=== PATIENT | female | born 1965 | race Caucasian/White ===

== ENCOUNTER → 2017-02-14 | Outpatient (CLI) | payer OTHER ==
--- NOTE | 2017-02-14 16:33 | REPMRS ---
Patient History The patient states she had a clinical breast exam in 12/2016. No known family history of cancer. Benign stereotatic breast biopsy of the right breast, October 04, 2012. US Guidance Needle Placement of the left breast, October 04, 2012. Digital Woman Screen Mammo: February 14, 2017 - Exam #: [id number] Bilateral CC and MLO view(s) were taken. Technologist: Pari Raymond, Technologist Prior study comparison: July 08, 2015, digital woman screen mammo performed at [facility] to [facility]. June 11, 2014, left breast digital mammo diagnostic unilateral, performed at [facility]. June 11, 2014, left breast real time ultrasound, performed at [facility]. May 28, 2014, digital woman screen mammo performed at [facility]. FINDINGS: The breast tissue is heterogeneously dense. This may lower the sensitivity of mammography. There has been no change in the appearance of the mammogram from the prior studies. There is a moderate amount of residual fibroglandular tissue which is fairly symmetric. Stereotactic clip again noted in upper outer quadrant right breast. There is no interval development of dominant mass, architectural distortion, or clustered microcalcification typical of malignancy. Scattered lymph nodes are seen in the right axilla. No significant changes when compared with prior studies. ASSESSMENT: BI-RADS/ACR category 2 mammogram. Benign finding(s). Recommendation Routine screening mammogram in 1 year (for women over age 40). This mammogram was interpreted with the aid of an FDA-approved computer-aided dectection system. A. Negative x-ray reports should not delay biopsy if a dominant or clinically suspicious mass is present. B. Four to eight percent of cancers are not identified by mammography. C. Adenosis and dense breast may obscure an underlying neoplasm. Electronically Signed By: Tavarse Schwartz MD 02/14/17 [id number]
== END ==
LOC: M WHC 15:38
PROVIDERS: ATTEND Nurse Practitioner Family
DX: Z12.31 Encounter for screening mammogram for malignant neoplasm of breast (principal)

== ENCOUNTER → 2017-04-25 | Outpatient (REF) | payer OTHER | LOC: M SMT 17:20 | PROVIDERS: ATTEND Nurse Practitioner Women's Health | DX: Q64.4 Malformation of urachus (principal) ==

== ENCOUNTER → 2017-05-10 | Outpatient (CLI) | payer OTHER ==
[~2017-05-10] VITALS: Ht 149.9 cm; Wt 84.8 kg
[~2017-05-10] MED LIST: LIDOCAINE 2% INJ 100 MG/5 ML SDV (FOR ANES.) As Ordered ONE; NS 1,000 ML IV ONE; PROPOFOL 200 MG/20 ML VIAL As Ordered ONE
--- NOTE | 2017-05-10 12:14 | ROOR ---
Patient Name: Emely Vee Procedure Date: 05/10/2017 11:41 AM Date of : 1965 Age: 51 Room: [facility] Gender: Female Note Status: Finalized Procedure: Colonoscopy Indications: Abnormal CT of the GI tract Providers: Sam Perales MD Referring MD: VIVIANE WEBER NP Requesting Provider: Medicines: Monitored Anesthesia Care Complications: There was abnormal thickening or mass in the cecum by CT just above the ileocecal valve. No mass. thickening, inflammation found at the cecum. Procedure: Pre-Anesthesia Assessment: - Prior to the procedure, a History and Physical was performed, and patient medications and allergies were reviewed. The patient is competent. The risks and benefits of the procedure and the sedation options and risks were discussed with the patient. All questions were answered and informed consent was obtained. Patient identification and proposed procedure were verified by the physician, the nurse and the anesthesiologist in the procedure room. Mental Status Examination: alert and oriented. Airway Examination: normal oropharyngeal airway and neck mobility. Respiratory Examination: clear to auscultation. CV Examination: normal. Prophylactic Antibiotics: The patient does not require prophylactic antibiotics. Prior Anticoagulants: The patient has taken no previous anticoagulant or antiplatelet agents. ASA Grade Assessment: II - A patient with mild systemic disease. After reviewing the risks and benefits, the patient was deemed in satisfactory condition to undergo the procedure. The anesthesia plan was to use monitored anesthesia care (MAC). Immediately prior to administration of medications, the patient was re-assessed for adequacy to receive sedatives. The heart rate, respiratory rate, oxygen saturations, blood pressure, adequacy of pulmonary ventilation, and response to care were monitored throughout the procedure. The physical status of the patient was re-assessed after the procedure. The Colonoscope was introduced through the anus and advanced to the terminal ileum, with identification of the appendiceal orifice and IC valve. The colonoscopy was performed without difficulty. The patient tolerated the procedure well. The quality of the bowel preparation was good. Findings: The perianal and digital rectal examinations were normal. The entire examined colon appeared normal. Impression: - The entire examined colon is normal. - No specimens collected. Recommendation: - Discharge patient to home (ambulatory). Sam Perales MD Sam Perales MD 05/10/2017 12:13:45 PM This report has been signed electronically. Number of Addenda: 0 Note Initiated On: 05/10/2017 11:41 AM Estimated Blood Loss: Estimated blood loss: none.
[2017-05-10 12:41] VITALS: BP 143/87
== END | disposition home or self-care (01) ==
LOC: M OPP 11:04
PROVIDERS: ATTEND Surgery
DX: R93.3 Abnormal findings on diagnostic imaging of other parts of digestive tract (principal); R12 Heartburn; R06.83 Snoring; Q64.4 Malformation of urachus; N36.8 Other specified disorders of urethra; D37.4 Neoplasm of uncertain behavior of colon; Z80.8 Family history of malignant neoplasm of other organs or systems

== ENCOUNTER → 2017-06-08 | Day surgery (SDC) | payer OTHER ==
--- NOTE | 2017-05-25 20:43 | CR ---
DATE OF CONSULTATION: 05/25/2017 Preoperative consultation on Emely Vee for Dr. Cole for a bladder tumor resection. Dear Dr. Cole: Thank you for your referral for Ms. Emely Vee for preoperative evaluation prior to her bladder tumor resection. Ms. Vee as you know is a 51-year-old female, past medical history of obesity, osteoarthritis, dyspepsia, who reports that she has been in her usual state of health. The patient is active, walking two miles a day. Denies any chest pain, palpitations, syncope or presyncope. The patient reports sudden onset abdominal pain when she rolled over spring. She was able to feel a mass. This mass was evaluated initially with pelvic ultrasound times two which showed no pathology but a CT scan of the abdomen and pelvis 04/07/2017, showed what appeared to be a mass in the right colon and a cystic structure anterior pelvic wall most consistent with a urachal cyst. The patient was referred to urology, a cystoscopy was done which revealed a 2 cm mass in the bladder. The patient denies any urgency, frequency, dysuria. She is aware of the abdominal mass. It is sensitive only if pressure is specifically put over it. She otherwise denies any other pelvic symptoms, chest pain, palpitations, syncope or presyncope. Patient's colon mass seen on CT imaging was evaluated with colonoscopy which showed no pathology. Review of systems otherwise negative. PAST MEDICAL HISTORY: 1. Fibrocystic breast disease status post breast aspiration 10/01. 2. Cholecystectomy 1999. 3. G4, P2 spontaneous AB one, TAB one. 4. Osteoarthritis. 5. Varicose vein ablation. PATIENT'S MEDICATIONS: None. DRUG ALLERGIES: None. 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 Two grown sons and a daughter. Never smoked. Six beers a week. FAMILY HISTORY: Father hypertension, skin cancer. Mother suicide at age 45 with a history of depression, obesity, thyroid disease, COPD. Siblings alive and well. Grandparents had diabetes, cardiac disease, aneurysm, heart disease. PHYSICAL EXAMINATION: Obese female in no acute distress. VITAL SIGNS: Are: Weight 192 with a BMI of 38, oxygen saturation is 98%, blood pressure 104/68, pulse is 77. HEENT EXAM: Head is normocephalic. Neck is supple. Pupils equal, reactive to light. Extraocular movements are intact. Conjunctivae not injected. Sclerae anicteric. Vision grossly normal. Tympanic membranes normal. Tongue midline. Posterior pharynx without inflammation. NECK: Is supple. No thyromegaly, JVD, carotid bruits. RESPIRATORY: Clear to auscultation, resonant to percussion. BREAST EXAM: Deferred. CARDIOVASCULAR: 2-3 over 6 systolic murmur right upper sternal border. ABDOMEN: Soft, nontender. Obese. No hepatosplenomegaly, however midline cystic 1.5 cm soft mass is palpated, minimally tender. EXTREMITIES: No cyanosis, clubbing or edema. LABORATORY DATA: EKG done in my office 05/25/2017 shows normal sinus rhythm, rate of 65, axis of 38 degrees, essentially normal with no comparison available. Lab work 05/18/2017 shows normal CBC, urinalysis, PT/PTT, metabolic profile. Chest [facility] done at [facility] ([facility] 05/18/2017 is normal with no acute disease. IMPRESSION: Ms. Emely Vee, a 51-year-old female with no cardiovascular risk factors other than age, has no signs or symptoms indicative of cardiovascular ischemia and is felt to be at low risk for cardiovascular complications from the proposed surgical intervention which can be further minimized by the followin. Bladder tumor. Await pathology. Defer further evaluation and treatment to Dr. Cole. 2. Urachal cyst. Pursue further treatment after need for further evaluation and treatment for bladder tumor determined. 3. Abnormal CT showing a mass in the right colon. Normal colonoscopy showing no pathology. Discussed with radiologist as to need for further evaluation and treatment. Colonoscopy showed no pathology 05/10/2017. 4. Systolic murmur benign in nature. No radiation. No need for further evaluation and treatment. 5. Obesity. Diet, exercise. 6. Osteoarthritis (OA), degenerative joint disease (DJD), chronic, stable. Thank you very much for this consultation. Please call with questions or concerns.
[~2017-06-08] VITALS: Ht 149.9 cm; Wt 84.8 kg
[~2017-06-08] MED LIST changes: +ACETAMINOPHEN 650MG ER TAB (TYLENOL ARTHRITIS) PO SCH; +CIPR500T3 PO; +CIPROFLOXACIN 500 MG TAB PO SCH; +KETOROLAC 30 MG/ML VIAL (J1885) IV PRN; +LIDOCAINE 1% MDV 20ML VIAL SQ PRN; +LR 1,000 ML IV ONE; +LR 1,000 ML IV SCH; +MEPERIDINE INJ 25 MG/ML VIAL (J2175) IV PRN; +METOCLOPRAMIDE INJ 10MG/2ML VIAL (J2765) IV PRN; +MIDAZOLAM INJ 2 MG/2 ML VIAL (J2250) As Ordered ONE; -NS 1,000 ML IV ONE; +ONDANSETRON 4MG/2ML VIAL (J2405) As Ordered ONE; +ONDANSETRON 4MG/2ML VIAL (J2405) IV PRN; +TYLE650T35 PO; +dexameTHASONE 4 MG/ML 1ML VIAL (J1100) As Ordered ONE; +ePHEDrine SULFATE 25 MG/5 ML(5MG/ML) SYRINGE As Ordered ONE; +fentaNYL 100 MCG/2 ML INJECTION (J3010) IV PRN; +fentaNYL 250 MCG/5 ML INJECTION (J3010) As Ordered ONE
[2017-06-08 11:30] VITALS: BP 133/80
--- NOTE | 2017-06-09 20:52 | RO ---
DATE OF PROCEDURE: 06/08/2017 PREPROCEDURE DIAGNOSIS: Bladder tumor. POSTPROCEDURE DIAGNOSIS: Bladder tumor 2 cm in diameter. FINDINGS: 2 cm in diameter bladder tumor, papillary in the middle area of the trigone. PROCEDURE: Cystoscopy, plus exam under anesthesia, plus transurethral resection of bladder tumor, plus urethral dilatation. SURGEON: Andreas Cole MD RADIOLOGICAL METALLURGIST: None. ANESTHESIA: LMA. COMPLICATIONS: None. ESTIMATED BLOOD LOSS: N/A. HISTORY OF THE PRESENT ILLNESS: A 51-year-old female patient has microscopic hematuria. We did a flexible cystoscopy in the clinic, and it showed a papillary tumor about 2 cm in the trigone. For this reason, she has consented for a cystoscopy plus transurethral resection of bladder tumor. DESCRIPTION OF PROCEDURE: In a patient under general anesthesia in supine modified low lithotomy position, after prepping and draping the area of concern, we started by doing a bimanual examination under anesthesia. There were no bladder masses felt. The pedicles of the bladder were intact. There were no lesions in the vagina or urethra. We then proceeded to introduce the cystoscope. Cystoscope could not pass very easily. For this reason, we grabbed the Hegar dilators and dilated the urethral meatus and the urethra up to a 30 Charriere. We then proceeded to pass the cystoscope and did a formal cystoscopy with 30-degree lens and 70-degree lens. There was only one tumor about 2 cm in the trigone in the midline. We then exchanged the cystoscope for a resectoscope. Under normal saline, we did a bipolar transurethral resection of the bladder tumor. We collected the specimen with [facility] evacuator and sent it for permanent pathology analysis. We then fulgurated the base of resection and then took out the resectoscope and placed a 20-[place] Whiteside catheter, inflated the balloon to 20 mL and placed it to gravity. PLAN: The patient will go home, take antibiotics, pain medication, followup at [facility] [place] on Monday to actively remove and to give her a voiding trial. There were no complications during surgery.
== END | disposition home or self-care (01) ==
LOC: M SDC 07:06
PROVIDERS: ATTEND Urology
DX: R31.29 Other microscopic hematuria (principal); K21.9 Gastro-esophageal reflux disease without esophagitis
CPT/HCPCS: 36415; 52234; 86850; 86900; 86901; 88307; J0690; J1100; J1885; J2250; J2405; J3010

== ENCOUNTER → 2017-10-18 | Outpatient (CLI) | payer OTHER ==
[~2017-10-18] MED LIST changes: -ACETAMINOPHEN 650MG ER TAB (TYLENOL ARTHRITIS) PO SCH; -CIPROFLOXACIN 500 MG TAB PO SCH; +ISOVUE-370 76% 100ML VIAL (Q9967) As Ordered ONE; -KETOROLAC 30 MG/ML VIAL (J1885) IV PRN; -LIDOCAINE 1% MDV 20ML VIAL SQ PRN; -LIDOCAINE 2% INJ 100 MG/5 ML SDV (FOR ANES.) As Ordered ONE; -LR 1,000 ML IV ONE; -LR 1,000 ML IV SCH; -MEPERIDINE INJ 25 MG/ML VIAL (J2175) IV PRN; -METOCLOPRAMIDE INJ 10MG/2ML VIAL (J2765) IV PRN; -MIDAZOLAM INJ 2 MG/2 ML VIAL (J2250) As Ordered ONE; -ONDANSETRON 4MG/2ML VIAL (J2405) As Ordered ONE; -ONDANSETRON 4MG/2ML VIAL (J2405) IV PRN; -PROPOFOL 200 MG/20 ML VIAL As Ordered ONE; -dexameTHASONE 4 MG/ML 1ML VIAL (J1100) As Ordered ONE; -ePHEDrine SULFATE 25 MG/5 ML(5MG/ML) SYRINGE As Ordered ONE; -fentaNYL 100 MCG/2 ML INJECTION (J3010) IV PRN; -fentaNYL 250 MCG/5 ML INJECTION (J3010) As Ordered ONE
--- NOTE | 2017-10-18 12:53 | REP ---
Clinical: Cystitis cystica. Technique: Axial precontrast, contrast enhanced, and delayed images of the abdomen and pelvis using 100 ml Isovue 370 intravenous contrast material coronal and sagittal re-formations as well as volume rendered 3-D CT urogram. Findings: Evaluation of the urinary tract system in all phases of enhancement demonstrates an 8 cm simple right renal cyst along with bilateral extrarenal pelvises. The kidneys demonstrate symmetric enhancement without nephrolithiasis, perinephric stranding or mass lesion. The collecting system is without hydroureteronephrosis and the bladder is grossly unremarkable. No bladder wall thickening, mass lesion or bladder calculus is appreciated. No acute or chronic infiltrative changes are appreciated. 3.7 cm hepatic cyst identified in the medial segment left lobe. The liver is otherwise unremarkable. Evidence of prior cholecystectomy noted. Spleen, pancreas, and bilateral adrenal glands are normal. The enteric system is without obstruction or acute inflammatory process. Colonic and sigmoid diverticulosis noted without acute diverticulitis. Small fat containing periumbilical hernia as well as fat and fluid containing midline ventral pelvic hernia identified. Pelvis demonstrates age appropriate uterus / adnexa with uterine myomatous changes noted. Abdominal aorta and vasculature appears normal. Surrounding musculoskeletal structures are intact and demonstrate degenerative changes. No ascites. No adenopathy. No free air. Lung bases are clear. Impression: 1. Urinary tract system demonstrates 8 cm simple right renal cyst along with benign bilateral extrarenal pelvises. No further urinary tract abnormality identified. 2. 3.7 cm hepatic cyst. 3. Diverticulosis without acute diverticulitis. 4. Myomatous changes to the uterus. 5. No acute abdominopelvic pathology appreciated. Signed by Bora Alvarado MD 10/18/2017 12:44 P
== END ==
LOC: M RAD 11:31
PROVIDERS: ATTEND Urology
DX: N30.80 Other cystitis without hematuria (principal); Q64.4 Malformation of urachus

== ENCOUNTER → 2018-02-20 | Outpatient (CLI) | payer OTHER | LOC: M WHC 06:46 | DX: Z12.31 Encounter for screening mammogram for malignant neoplasm of breast (principal); Z80.3 Family history of malignant neoplasm of breast | CPT/HCPCS: 77067 ==

== ENCOUNTER → 2018-05-07 | Outpatient (REF) | payer OTHER | LOC: M SFHCLERA 17:26 | DX: J02.9 Acute pharyngitis, unspecified (principal) ==

== ENCOUNTER → 2018-07-02 | Outpatient (REF) | payer OTHER | LOC: M SMT 17:14 | DX: N30.80 Other cystitis without hematuria (principal) ==

== ENCOUNTER → 2019-01-08 | Outpatient (CLI) | payer OTHER ==
[~2019-01-08] MED LIST changes: -ISOVUE-370 76% 100ML VIAL (Q9967) As Ordered ONE
--- NOTE | 2019-01-11 09:53 | SLEEPHOME ---
DATE OF PROCEDURE: 01/08/2019 ORDERED BY: Diane Rojas Diagnostic home sleep testing was due to concern for the obstructive sleep apnea syndrome in this patient with a story of excessive somnolence and nonrestorative sleep. For testing, a nocturnal T3 respiratory monitoring device was used. Continuous record was made of pulse, oxygen saturation, airflow, chest and abdominal strain and body position. 10 hours and 59 minutes of data were reviewed. Of these, 4 hours and 53 minutes were marked as time in bed. During the interval marked time in bed, there were 54 respiratory events identified of 10 seconds in duration or greater for a respiratory event index of 11. The events were primarily obstructive. Baseline pulse rate was 67 beats per minute. Pulse rate ranged 54-113. Baseline saturation was 93%. Saturations fell as low as 78%. Testing was performed in both the supine and nonsupine positions. IMPRESSION: Abnormal home sleep testing with repetitive respiratory events and oxygen desaturations to 78% with a respiratory event index of 11 is consistent with the obstructive sleep apnea syndrome. RECOMMENDATION: The patient should be encouraged to undergo formal sleep evaluation and in-laboratory pressure titration.
== END ==
LOC: M SLEEP HO 12:36
PROVIDERS: ATTEND Nurse Practitioner Family
DX: R40.0 Somnolence (principal)

== ENCOUNTER → 2019-03-28 | Outpatient (CLI) | payer OTHER ==
--- NOTE | 2019-03-28 15:18 | REP ---
BILATERAL MAMMOGRAM WITH 3D TOMOSYNTHESIS: FAMILY HISTORY: Breast cancer in sister at age 51. COMPARISON: 02/20/2018 as well as other prior exams. MLO and CC views of both breasts performed with 3D tomosynthesis. There is moderately dense fibroglandular tissue in a heterogeneous pattern. There is a new oval nodule in the upper outer quadrant of the left breast posteriorly which measures about 1.5 cm in maximum diameter. I see no other evidence of mass or clustered microcalcifications. A metallic clip is again seen in the upper outer quadrant of the right breast. IMPRESSION: ACR 0 incomplete. New oval nodule upper outer quadrant left breast posteriorly. Recommend spot compression views and ultrasound to further evaluate. BIRADS 0: BI-RADS/ACR category 0 mammogram, Incomplete: Need additional imaging evaluation and/or prior mammograms for comparison. This mammogram was interpreted with the aid of an FDA-approved computer-aided detection system. The patient states she/he has not had a clinical breast exam in over a year. The patient letter being requested is M0. Eyal Fournier lifetime risk of breast cancer is 16.6%.
== END ==
LOC: M WHC 12:36
PROVIDERS: ATTEND Internal Medicine
DX: Z12.31 Encounter for screening mammogram for malignant neoplasm of breast (principal); Z85.3 Personal history of malignant neoplasm of breast; N63.21 Unspecified lump in the left breast, upper outer quadrant

== ENCOUNTER → 2019-04-17 | Outpatient (CLI) | payer OTHER ==
--- NOTE | 2019-04-17 14:12 | REP ---
DIAGNOSTIC MAMMOGRAM LEFT BREAST WITH LEFT BREAST ULTRASOUND: Multiple spot compression views of the outer left breast performed and correlated with a recent mammogram of 03/28/2019. These confirm the presence of an oval, predominantly well circumscribed nodule posteriorly in the lateral aspect of the left breast about 10 cm from the nipple. Real-time sonographic evaluation of the posterolateral left breast demonstrates an oval cyst approximately 1.0 x 0.7 x 1.4 cm corresponding to the mammographic abnormality. This is benign. IMPRESSION: BIRADS 2: BI-RADS/ACR category 2 mammogram. Benign Findings. ACR 2 benign. Oval nodule confirmed posteriorly in the lateral aspect of the left breast. This corresponds to a simple benign cyst by ultrasound. Recommend routine followup bilateral mammogram in 1 year. Patient letter M1. Electronically Signed by Jung Smith MD 04/17/2019 02:17 P
== END ==
LOC: M RAD 12:46
PROVIDERS: ATTEND Internal Medicine
DX: N60.02 Solitary cyst of left breast (principal)

== ENCOUNTER → 2019-04-19 | Outpatient (CLI) | payer OTHER ==
--- NOTE | 2019-04-23 20:18 | SLEEPCENT ---
DATE OF PROCEDURE: 04/19/2019 ORDERED BY: JUDD Connolly Nocturnal polysomnography was performed for the titration of pressure therapy in this patient with a clinical diagnosis of obstructive sleep apnea syndrome confirmed by home testing revealing a respiratory event index of 11. For testing the patient was fit with a ResMed AirFit F20 full face mask of small size, 4 cm of water pressure were applied to the circuit and the lights were extinguished. 8 hours and 1 minute of data were reviewed. There were 428 minutes of sleep identified. Sleep latency was mildly prolonged at 20 minutes. Rapid eye movement (REM) latency was normal at 97 minutes. Sleep architecture was good with four REM cycles. Overall sleep efficiency was 90.7%. The patient's electrocardiogram showed a sinus rhythm with an average heart rate of 60 beats per minute. EEG showed normal waveforms for awake and sleep. Respiratory events persisted prompting an increase in continuous positive airway pressure (CPAP) pressure, events occurring late in the night prompted the increase to a pressure of +18 with which the patient did sleep through REM without respiratory event or oxygen desaturation. Remaining measures of sleep physiology were normal. IMPRESSION: Obstructive sleep apnea syndrome (G47.33). RECOMMENDATIONS: Nightly use of pressure therapy 18 cm of water.
== END ==
LOC: M SLEEP 19:44
PROVIDERS: ATTEND Nurse Practitioner Family
DX: G47.33 Obstructive sleep apnea (adult) (pediatric) (principal)

== ENCOUNTER → 2020-12-31 | Outpatient (REF) | payer OTHER ==
[~2020-12-31] MED LIST changes: +ACET650T61 PO; -TYLE650T35 PO
[2021-01-02 14:13] LABS: ANTINUCLEAR ANTIBODIES DIRECT Negative (Negative); Lyme Disease IgG/IgM Antibodie <0.91 ISR (0.00-0.90); Lyme Disease IgM Ab Quantitati <0.80 index (0.00-0.79)
== END ==
LOC: M LAB REF 16:19
PROVIDERS: ATTEND Registered Nurse
DX: M25.50 Pain in unspecified joint (principal)

== ENCOUNTER → 2021-07-09 | Outpatient (REF) | payer OTHER | LOC: M LAB REF 16:50 | PROVIDERS: ATTEND Registered Nurse | DX: M13.0 Polyarthritis, unspecified (principal) ==

== ENCOUNTER → 2021-08-30 | Outpatient (REF) | payer OTHER ==
[2021-08-30 18:23] LABS: BACTERIA, URINE AUTO 1+ (NEGATIVE); RBC, URINE AUTO 0 /HPF (0-3); SQUAMOUS EPITHELIAL CELL UR AU 0 /HPF (0-6); WBC, URINE AUTO 0 /HPF (0-3)
== END ==
LOC: M SMT 16:48
PROVIDERS: ATTEND Specialist
DX: N39.43 Post-void dribbling (principal)

== ENCOUNTER → 2021-12-06 | Outpatient (CLI) | payer OTHER ==
[~2021-12-06] MED LIST changes: +GASTROGRAFIN SOLUTION 30ML (Q9963) ONE; +ISOVUE-370 76% 100ML VIAL ONE
== END ==
LOC: M PLAIMG 09:23
PROVIDERS: ATTEND Registered Nurse
DX: D37.4 Neoplasm of uncertain behavior of colon (principal)
CPT/HCPCS: 74178; Q9963; Q9967

== ENCOUNTER → 2022-06-07 | Outpatient (REF) | payer OTHER ==
[~2022-06-07] MED LIST changes: -GASTROGRAFIN SOLUTION 30ML (Q9963) ONE; -ISOVUE-370 76% 100ML VIAL ONE
== END ==
LOC: M LAB REF 12:08
PROVIDERS: ATTEND Student in an Organized Health Care Education/Training Program
DX: R30.0 Dysuria (principal)

== ENCOUNTER → 2022-06-07 | Outpatient (CLI) | payer OTHER ==
[2022-06-07 12:57] LABS: EOS # 0.1 10^3/uL (0.0-0.5); EOS % 3.1 % (0.0-3.0); HEMOGLOBIN 12.1 g/dl (12.0-15.5); LYMPH # 1.3 10^3/uL (1.5-5.0); LYMPH % 30.3 % (24.0-44.0); MEAN CORPUSCULAR HEMOGLOBIN 30.9 pg (27.0-33.0); MEAN CORPUSCULAR HGB CONC 32.7 g/dl (32.0-36.5); MEAN CORPUSCULAR VOLUME 94.4 fl (80.0-96.0); MONO # 0.4 10^3/uL (0.0-0.8); MONO % 9.8 % (2.0-8.0); NEUTROPHILS # 2.3 10^3/uL (1.5-8.5); NEUTROPHILS % 55.6 % (36.0-66.0); PLATELET COUNT, AUTOMATED 254 10^3/uL (150-450); RED BLOOD COUNT 3.92 10^6/uL (4.00-5.40); WHITE BLOOD COUNT 4.2 10^3/uL (4.0-10.0)
[2022-06-07 13:09] LABS: ALT/SGPT 26 U/L (12-78); BILIRUBIN,TOTAL 0.7 MG/DL (0.2-1.0); BLOOD UREA NITROGEN 10 MG/DL (7-18); CALCIUM LEVEL 9.4 MG/DL (8.5-10.1); CARBON DIOXIDE LEVEL 29 MEQ/L (21-32); CHLORIDE LEVEL 101 MEQ/L (98-107); CREATININE FOR GFR 0.59 MG/DL (0.55-1.30); GLOMERULAR FILTRATION RATE > 60.0 (>51); GLUCOSE, FASTING 123 MG/DL (70-100); LIPASE 85 U/L (73-393); POTASSIUM SERUM 3.6 MEQ/L (3.5-5.1); SODIUM LEVEL 135 MEQ/L (136-145); TOTAL PROTEIN 7.3 GM/DL (6.4-8.2)
== END ==
LOC: M WUC 09:43
PROVIDERS: ATTEND Student in an Organized Health Care Education/Training Program
DX: R30.0 Dysuria (principal)

== ENCOUNTER 2022-07-24 03:21 | Observation (INO) | payer OTHER ==
[~2022-07-24] VITALS: Ht 152.4 cm; Wt 80.7 kg
[2022-07-24] MEDS ORDERED: IBUP200C28 PO (03:29)
[2022-07-24] MEDS ORDERED: METH-1164 PO (03:29)
[2022-07-24] MEDS ORDERED: HYDR200T3 PO (03:29)
[2022-07-24] MEDS ORDERED: MEDR4PAK PO (03:29)
[2022-07-24 03:56] LABS: BASO # 0.1 10^3/uL (0.0-0.2); BASO % 0.7 % (0.0-1.0); EOS % 0.3 % (0.0-3.0); HEMATOCRIT 44.1 % (36.0-47.0); HEMOGLOBIN 14.7 g/dl (12.0-15.5); LYMPH # 1.8 10^3/uL (1.5-5.0); LYMPH % 19.6 % (24.0-44.0); MEAN CORPUSCULAR HEMOGLOBIN 30.9 pg (27.0-33.0); MEAN CORPUSCULAR HGB CONC 33.3 g/dl (32.0-36.5); MEAN CORPUSCULAR VOLUME 92.8 fl (80.0-96.0); MONO # 0.9 10^3/uL (0.0-0.8); MONO % 10.2 % (2.0-8.0); NEUTROPHILS # 6.3 10^3/uL (1.5-8.5); PLATELET COUNT, AUTOMATED 316 10^3/uL (150-450); RED BLOOD COUNT 4.75 10^6/uL (4.00-5.40); WHITE BLOOD COUNT 9.1 10^3/uL (4.0-10.0)
[2022-07-24 04:25] LABS: ALT/SGPT 19 U/L (12-78); BILIRUBIN,DIRECT 0.3 MG/DL (0.0-0.2); BILIRUBIN,TOTAL 1.3 MG/DL (0.2-1.0); BLOOD UREA NITROGEN 21 MG/DL (7-18); CALCIUM LEVEL 9.8 MG/DL (8.5-10.1); CARBON DIOXIDE LEVEL 29 MEQ/L (21-32); CHLORIDE LEVEL 99 MEQ/L (98-107); CREATININE FOR GFR 0.66 MG/DL (0.55-1.30); GLOMERULAR FILTRATION RATE > 60.0 (>51); GLUCOSE, FASTING 99 MG/DL (70-100); LIPASE 144 U/L (73-393); POTASSIUM SERUM 3.6 MEQ/L (3.5-5.1); SODIUM LEVEL 136 MEQ/L (136-145); TOTAL PROTEIN 7.4 GM/DL (6.4-8.2)
[2022-07-24 04:34] LABS: CK-MB VALUE MASS < 1.0 NG/ML (<3.6); CPK CREATINE PHOSPHOKINASE 47 U/L (26-192); MB/CK RELATIVE INDEX 2.13 (< OR =4)
[2022-07-24] MEDS ORDERED: ONDANSETRON 4MG 2ML VIAL IV ONE (05:30)
[2022-07-24] MEDS ORDERED: NS 1,000 ML IV ONE (05:30)
[2022-07-24] MEDS ORDERED: ISOVUE-370 76% 100ML VIAL As Ordered ONE (05:37)
[2022-07-24 07:31] LABS: RSV AMPLIFICATION NEGATIVE (NEGATIVE)
[2022-07-24] MEDS ORDERED: IBUP1TAB5 PO (07:35)
[2022-07-24] MEDS ORDERED: HOME MED LIST COMPLETE! XX SCH (07:40)
[2022-07-24] MEDS ORDERED: MORPHINE 2 MG/ML 1ML VIAL IV PRN ×2 (13:30)
[2022-07-24] MEDS: NS 1,000 ML IV SCH ×2 (13:30→20:45)
[2022-07-24] MEDS ORDERED: KETOROLAC 30 MG/ML 1ML VIAL IV PRN (13:30)
[2022-07-24] MEDS ORDERED: ONDANSETRON 4MG 2ML VIAL IV PRN (13:30)
[2022-07-24 15:05] VITALS: BP 137/86
[2022-07-24 18:00] VITALS: BP 136/88
[2022-07-24 21:45] VITALS: BP 142/77
[2022-07-25] VITALS (14 sets, daily range): BP systolic 127–157; BP diastolic 75–89
[2022-07-25] MEDS: NS 1,000 ML IV SCH ×2 (03:39→10:13)
[2022-07-25] MEDS: PANTOPRAZOLE 40MG VIAL IV SCH (09:01)
[2022-07-25] MEDS ORDERED: fentaNYL 250 MCG/5 ML INJECTION As Ordered ONE (13:35)
[2022-07-25] MEDS ORDERED: MIDAZOLAM INJ 2MG/2ML VIAL (J2250 PER 1MG) As Ordered ONE (13:36)
[2022-07-25] MEDS ORDERED: LIDOCAINE 2% 100MG/5ML SDV (FOR ANES.) As Ordered ONE (13:36)
[2022-07-25] MEDS ORDERED: propofoL 200 MG/20 ML VIAL As Ordered ONE (13:36)
[2022-07-25] MEDS ORDERED: ROCURONIUM BROMIDE 50 MG/5 ML VIAL As Ordered ONE ×2 (13:36→15:13)
[2022-07-25] MEDS ORDERED: BUPIVACAINE/EPIN 0.25% 30 ML VIAL As Ordered ONE (13:45)
[2022-07-25] MEDS ORDERED: SUCCINYLCHOLINE 100 MG/5 ML SYRINGE (J0330) As Ordered ONE (14:05)
[2022-07-25] MEDS ORDERED: ZOSYN 3.375GM VIAL As Ordered ONE (14:22)
[2022-07-25] MEDS ORDERED: ONDANSETRON 4MG 2ML VIAL As Ordered ONE (14:42)
[2022-07-25] MEDS ORDERED: dexameTHASONE 4 MG/ML 1ML VIAL (J1100 PER 1MG) As Ordered ONE (14:42)
[2022-07-25] MEDS ORDERED: BUPIVACAINE HCL 0.25% 10ML VIAL As Ordered ONE (15:25)
[2022-07-25] MEDS ORDERED: BUPIVACAINE LIPOSOME/PF 1.3% 20ML VIAL (13.3MG/ML)(EXPAREL) As Ordered ONE (15:25)
[2022-07-25] MEDS ORDERED: ACETAMINOPHEN 1000MG 100ML IV BTL (OFIRMEV) (J0131 PER 10MG) As Ordered ONE (15:38)
[2022-07-25] MEDS ORDERED: SUGAMMADEX SODIUM 500 MG/5 ML VIAL (BRIDION) As Ordered ONE (15:39)
[2022-07-25] MEDS ORDERED: KETOROLAC 60MG 2ML VIAL As Ordered ONE (15:43)
[2022-07-25] MEDS ORDERED: fentaNYL 100 MCG/2 ML INJECTION IV PRN (15:55)
[2022-07-25] MEDS ORDERED: oxyCODONE 5MG TAB PO PRN (15:55)
[2022-07-25] MEDS ORDERED: LR 1,000 ML IV SCH (15:55)
[2022-07-25] MEDS ORDERED: ONDANSETRON 4MG 2ML VIAL IV PRN (15:55)
[2022-07-25] MEDS: KETOROLAC 30 MG/ML 1ML VIAL IV SCH (21:30)
[2022-07-26 02:07] VITALS: BP 125/78
[2022-07-26] MEDS: KETOROLAC 30 MG/ML 1ML VIAL IV SCH ×2 (03:23→08:43)
[2022-07-26 06:04] VITALS: BP 126/78
[2022-07-26] MEDS: PANTOPRAZOLE 40MG VIAL IV SCH (08:43)
[2022-07-26] MEDS ORDERED: HYDROXYCHLOROQUINE 200 MG TAB PO SCH (09:00)
[2022-07-26] MEDS ORDERED: methocarbamoL 500 MG TAB PO PRN (09:05)
== END 2022-07-26 10:58 | disposition home or self-care (01) ==
LOC: M ED 03:21 → M ED INP 13:30 → ENRESERV 14:20 → M MSPAV 15:04
PROVIDERS: ADMIT Surgery; ATTEND Surgery
DX: K43.0 Incisional hernia with obstruction, without gangrene (principal); M06.9 Rheumatoid arthritis, unspecified; Z79.899 Other long term (current) drug therapy
CPT/HCPCS: 36415; 49655; 74021; 74177; 80053; 82248; 82550; 82553; 83605; 83690; 84484; 85025; 87631; 93005; 96361; 96374; 96375; 96376; 99285; C1781; C9113; C9290; J0131; J0330; J1100; J1885; J2250; J2270; J2405; J2543; J3010; Q9967; S2900

== ENCOUNTER → 2022-09-19 | Outpatient (REF) | payer OTHER ==
[~2022-09-19] MED LIST changes: +HYDR200T3 PO; +IBUP1TAB5 PO; +IBUP200C28 PO; +MEDR4PAK PO; +METH-1164 PO
[2022-09-19 17:57] LABS: HEPATITIS C VIRUS ABY INDEX < 0.0 INDEX (<0.8); HIV 1&2 SCREEN CENTAUR NEGATIVE (NEGATIVE)
[2022-09-20 13:31] LABS: GC DNA AMPLIFICATION NEGATIVE (NEGATIVE)
== END ==
LOC: M LAB REF 16:02
PROVIDERS: ATTEND Registered Nurse
DX: Z00.00 Encounter for general adult medical examination without abnormal findings (principal); Z20.2 Contact with and (suspected) exposure to infections with a predominantly sexual mode of transmission

== ENCOUNTER → 2022-09-29 | Outpatient (CLI) | payer OTHER | LOC: M RAD 17:53 | PROVIDERS: ATTEND Registered Nurse | DX: M25.552 Pain in left hip (principal) ==